=== PATIENT | male | born 1950 | race Caucasian/White ===

== ENCOUNTER 2024-02-17 16:02 | Outpatient (CLI) | payer MEDICARE | END 2024-02-17 23:59 | disposition EMS.NT | LOC: EMS 16:02 | DX: R51.9 Headache, unspecified (principal) ==

== ENCOUNTER 2024-02-18 11:52 | Outpatient (CLI) | payer MEDICARE | END 2024-02-18 11:53 | disposition home or self-care (01) | LOC: LAB.S 11:52 | PROVIDERS: ATTEND Physician Assistant | DX: U07.1 COVID-19 (principal) | CPT/HCPCS: 36415; 80053 ==